=== PATIENT | female | born 1945 | race Caucasian/White ===

== ENCOUNTER 2017-03-05 15:16 | Observation (INO) | payer OTHER ==
[2017-03-05] MEDS ORDERED: NS 1,000 ML IV ONE (15:34)
--- NOTE | 2017-03-05 15:41 | EDPHY ---
H & P Stated Complaint: vertigo started tuesday, then ate bad meatloaf +n/v x 2 days Source: Patient Exam Limitations: No limitations - Personal History Current Tetanus/Diphtheria Vaccine: Unsure Current Tetanus Diphtheria and Acellular Pertussis (TDAP): Unsure - Medical/Surgical History Hx Asthma: Yes Hx Chronic Respiratory Disease: No Hx Diabetes: No Hx Cardiac Disease: No Hx Renal Disease: No Hx Cirrhosis: No Hx Alcoholism: No Hx HIV/AIDS: No Hx Splenectomy or Spleen Trauma: No Other PMH: Glaucoma, Barretts, Asthma, food allergies neck fusion -chronic neck pain;. vertigo - Social History Smoking Status: Never smoked HPI/ROS: CHIEF COMPLAINT: Nausea vomiting HISTORY OF PRESENT ILLNESS: Patient complains of 2 days history of nausea vomiting. This started late night while she was sleeping. Been constant duration. Moderate to severe. Difficulty keeping any solids down. Occasionally keep some liquids down. If she does not vomit immediately after eating it is within our doing so. 5-6 episodes per day. No bloody emesis. No diarrhea. Some constipation. Epigastric abdominal pain with this. No fever or chills. No neck pain or stiffness. Some headache with this. No urinary complaints. She does associated with some vertiginous complaints. She has had some spinning sensation that is worsened when she stands up and changes position over the past few days. She has had this in the past without definitive diagnosis. No other associated complaints or modifying factors. Medical history significant for history of Ballard's esophagitis REVIEW OF SYSTEMS: Ten systems reviewed and are negative unless otherwise noted in the HPI EXAMINATION: General Appearance: Alert, no distress Head: normocephalic, atraumatic Eyes: Pupils equal and round, no conjunctival pallor or injection ENT, Mouth: Mucous membranes moist. Uvula midline Neck: Normal inspection, supple, non-tender. Trachea midline Respiratory: Lungs are clear to auscultation. No wheezing, rhonchi or crackles Cardiovascular: Regular rate and rhythm. No murmur. Pulses intact distally. Gastrointestinal: Abdomen is soft. Mild epigastric tenderness.. No tympany. No rigidity. No guarding. No distention. Non-acute abdomen. Neurological: A&O, nonfocal, GCS 15. Skin: Warm and dry, no rash Extremities: Nontender, no pedal edema Psychiatric: Mood and affect normal DIFFERENTIAL DIAGNOSES: Including but not limited to gastritis, enteritis, cholecystitis, cholelithiasis , pancreatitis, viral illness, dehydration. MDM: 3:40 p.m. Nausea and vomiting over the past 2 days. Vital signs are stable. Examination is not concerning regarding the abdomen. She does have mild epigastric tenderness. This is a nonacute abdomen. Laboratory studies have been ordered, IV fluid resuscitation, antiemetics. She is in no acute distress and not actively vomiting at this time. 4:20 p.m. Notified by nursing staff that the patient is complaining of chest pain. EKG was immediately obtained and is normal sinus rhythm without ischemia. She then proceeded to vomit. While doing so she had a short episode of bradycardia, followed by rebound tachycardia. Suspect this was a vagal as this spontaneously resolved she calmed down and her vomiting stopped. 5:20 p.m. Patient is feeling minimally better. She is no longer vomiting but still nauseated. Given the onset of her chest pain and the duration of her symptoms I will admit the patient for observation. Her troponin is negative. 5:30 p.m. I have discussed the case with Dr. Alexandre. He will admit the patient to EACU observation status. She is admitted in stable condition. ED Precautions: Worsening pain. Fever. Bloody stools. Bloody emesis. Constipation or diarrhea. SUPERVISION: Shared visit with Dr. Davis ([facility]) Constitutional: Initial Vital Signs Temperature (C) 97.7 F 03/05/17 15:19 Heart Rate 82 03/05/17 15:19 Respiratory Rate 16 03/05/17 15:19 O2 Sat (%) 95 03/05/17 15:19 O2 Delivery Mode Room Air O2 (L/minute) 2 Allergies/Adverse Reactions: asparagus Allergy (Intermediate, Verified 12/20/15 05:45) Vomiting ciprofloxacin [From Cipro] Allergy (Verified 03/05/17 15:19) sulfacetamide [From Sulfacet-R] Allergy (Verified 03/05/17 15:19) sulfur [From Sulfacet-R] Allergy (Verified 03/05/17 15:19) Home Medications: Medication Instructions Recorded Bimatoprost 0.01% [Lumigan 0.01% 1 drops EACHEYE HS 12/20/15 (*)] Cetirizine [ZyrTEC 10 mg (*)] 10 mg PO HS 12/20/15 Escitalopram Oxalate [Lexapro] 5 mg PO DAILY 12/20/15 Mometasone/Formoterol [Dulera 100 2 puffs IH BID 12/20/15 Mcg/5 Mcg Inhaler] Montelukast Sodium [Singulair 10 10 mg PO DAILY@1800 12/20/15 mg (*)] Omeprazole [Prilosec 20 mg] 20 mg PO BID 03/05/17 Rosuvastatin Calcium [Crestor] 10 mg PO HS 03/05/17 Medical Decision Making - Diagnostics EKG Interpretation: EKG interpreted by me shows normal sinus rhythm with normal interval. There is left axis deviation. QRS is otherwise normal no significant ST elevation or depression. Rate is 68 (Hussein Davis) ED Course/Re-evaluation: I also saw the patient at 4:30 p.m.. I reviewed the history of vomiting and diffuse abdominal pain. She had received GI cocktail and some Zofran and then has thrown up again. She is also complaining of some pressure-type left chest pain under her left breast. Monitor shows occasional PVCs. A rhythm strip shows the patient seems to vagal down and lose her QRS complexes though continues to have P waves during and immediately following episodes of vomiting. Abdominal exam shows diffuse tenderness but no focal areas of tenderness. No masses or organomegaly (Hussein Davis) - Data Points Laboratory Results: Laboratory Results 03/05/17 15:48 03/05/17 15:48 03/05/17 03/05/17 03/05/17 15:48 15:48 15:48 WBC 4.65 10^3/uL 10^3/uL (3.80-9.50) RBC 4.82 10^6/uL 10^6/uL (4.18-5.33) Hgb 15.0 g/dL g/dL (12.6-16.3) Hct 44.2 % % (38.0-47.0) MCV 91.7 fL fL (81.5-99.8) MCH 31.1 pg pg (27.9-34.1) MCHC 33.9 g/dL g/dL (32.4-36.7) RDW 13.1 % % (11.5-15.2) Plt Count 204 10^3/uL 10^3/uL (150-400) MPV 10.1 fL fL (8.7-11.7) Neut % (Auto) 45.2 % % (39.3-74.2) Lymph % (Auto) 33.8 % % (15.0-45.0) Angelina % (Auto) 14.0 % H % (4.5-13.0) Eos % (Auto) 6.2 % % (0.6-7.6) Baso % (Auto) 0.6 % % (0.3-1.7) Nucleat RBC Rel Count 0.0 % % (0.0-0.2) Absolute Neuts (auto) 2.10 10^3/uL 10^3/uL (1.70-6.50) Absolute Lymphs (auto) 1.57 10^3/uL 10^3/uL (1.00-3.00) Absolute Monos (auto) 0.65 10^3/uL 10^3/uL (0.30-0.80) Absolute Eos (auto) 0.29 10^3/uL 10^3/uL (0.03-0.40) Absolute Basos (auto) 0.03 10^3/uL 10^3/uL (0.02-0.10) Absolute Nucleated RBC 0.00 10^3/uL 10^3/uL (0-0.01) Immature Gran % 0.2 % % (0.0-1.1) Immature Gran # 0.01 10^3/uL 10^3/uL (0.00-0.10) PT 12.6 SEC SEC (12.0-15.0) INR 0.95 (0.83-1.16) APTT 26.3 SEC SEC (23.0-38.0) Sodium 139 mEq/L mEq/L (134-144) Potassium 3.8 mEq/L mEq/L (3.5-5.2) Chloride 103 mEq/L mEq/L (97-110) Carbon Dioxide 26 mEq/l mEq/l (22-31) Anion Gap 10 mEq/L mEq/L (8-16) BUN 12 mg/dL mg/dL (7-23) Creatinine 0.7 mg/dL mg/dL (0.6-1.0) Estimated GFR > 60 Glucose 126 mg/dL H mg/dL (70-100) Calcium 9.4 mg/dL mg/dL (8.5-10.4) Total Bilirubin 0.4 mg/dL mg/dL (0.1-1.4) Conjugated Bilirubin 0.3 mg/dL mg/dL (0.0-0.5) Unconjugated Bilirubin 0.1 mg/dL mg/dL (0.0-1.1) AST 57 IU/L H IU/L (14-46) ALT 79 IU/L H IU/L (9-52) Alkaline Phosphatase 128 IU/L H IU/L (38-126) Troponin I Pending Total Protein 7.4 g/dL g/dL (6.3-8.2) Albumin 4.2 g/dL g/dL (3.5-5.0) Lipase 76.0 IU/L IU/L (23-300) Medications Given: Discontinued Medications Al Hydroxide/Mg Hydroxide (Maalox Susp) 30 ml PO ONCE ONE Stop: 03/05/17 16:21 Last Admin: 03/05/17 16:27 Dose: 30 ml Hyoscyamine Sulfate (Levsin, Hyomax-Sl) 0.25 mg PO ONCE ONE Stop: 03/05/17 16:21 Last Admin: 03/05/17 16:27 Dose: 0.25 mg Sodium Chloride (Ns) 1,000 mls @ 0 mls/hr IV ONCE ONE PRN Reason: Wide Open Stop: 03/05/17 15:35 Last Admin: 03/05/17 15:58 Dose: 1,000 mls Pantoprazole Sodium 80 mg/ (Sodium Chloride) 100 mls @ 200 mls/hr IV ONCE ONE Stop: 03/05/17 16:11 Last Admin: 03/05/17 16:14 Dose: 100 mls Lidocaine (Lidocaine 2% Viscous) 15 ml PO ONCE ONE Stop: 03/05/17 16:21 Last Admin: 03/05/17 16:27 Dose: 15 ml Meclizine HCl (Meclizine Hcl) 12.5 mg PO EDNOW ONE Stop: 03/05/17 15:43 Last Admin: 03/05/17 15:58 Dose: 12.5 mg Ondansetron HCl (Zofran) 4 mg IVP EDNOW ONE Stop: 03/05/17 15:44 Last Admin: 03/05/17 15:58 Dose: 4 mg Ondansetron HCl (Zofran) 4 mg IVP EDNOW ONE Stop: 03/05/17 16:30 Last Admin: 03/05/17 16:35 Dose: 4 mg Departure - Departure Referrals: Renee Dodson MD [Primary Care Provider] - As per Instructions
[2017-03-05] MEDS ORDERED: MECLIZINE HCL 25 MG TAB PO ONE (15:42)
[2017-03-05] MEDS ORDERED: PANTOPRAZOLE SODIUM 80 MG in NS 100 ML IV ONE (15:42)
[2017-03-05] MEDS ORDERED: ONDANSETRON 4 MG/2 ML VIAL IVP ONE ×2 (15:43→16:29)
[2017-03-05 16:01] LABS: % IMMATURE GRANULYOCYTES 0.2 % (0.0-1.1); ABSOLUTE IMMATURE GRANULOCYTES 0.01 10^3/uL (0.00-0.10); ADD DIFF? NO; ADD MORPH? NO; ADD SCAN? NO; ATYPICAL LYMPHOCYTE FLAG 0 (0-99); FRAGMENT RBC FLAG 0 (0-99); HEMATOCRIT 44.2 % (38.0-47.0); LEFT SHIFT FLG 0 (0-99); LIPEMIA HEMOLYSIS FLAG 90 (0-99); MEAN CELL HEMOGLOBIN 31.1 pg (27.9-34.1); MEAN CELL HEMOGLOBIN CONCENTR. 33.9 g/dL (32.4-36.7); MEAN CELL VOLUME 91.7 fL (81.5-99.8); MEAN PLATELET VOLUME 10.1 fL (8.7-11.7); PLATELET CLUMPS FLAG 0 (0-99); PLATELET COUNT 204 10^3/uL (150-400); RED BLOOD CELL COUNT 4.82 10^6/uL (4.18-5.33); RED CELL DISTRIBUTION WIDTH 13.1 % (11.5-15.2)
--- NOTE | 2017-03-05 16:10 | CPEKG ---
Heart Rate: 68 RR Interval: 882 P-R Interval: 192 QRSD Interval: 96 QT Interval: 392 QTC Interval: 417 P Woodland: 18 QRS Woodland: 4 T Wave Woodland: 27 EKG Severity - NORMAL ECG - EKG Impression: SINUS RHYTHM Electronically Signed By: Hussein Davis 05-Mar-2017 16:45:08
[2017-03-05 16:14] LABS: INR 0.95 (0.83-1.16); PROTIME(PATIENT) 12.6 SEC (12.0-15.0)
[2017-03-05 16:15] LABS: APTT 26.3 SEC (23.0-38.0)
[2017-03-05 16:17] LABS: ALANINE AMINOTRANSFERASE 79 IU/L (9-52); ALBUMIN 4.2 g/dL (3.5-5.0); ALKALINE PHOSPHATASE 128 IU/L (38-126); ANION GAP 10 mEq/L (8-16); ASPARTATE AMINOTRANSFERASE 57 IU/L (14-46); BILIRUBIN,TOTAL 0.4 mg/dL (0.1-1.4); CALCIUM 9.4 mg/dL (8.5-10.4); CARBON DIOXIDE 26 mEq/l (22-31); CHLORIDE 103 mEq/L (97-110); CREATININE 0.7 mg/dL (0.6-1.0); GLOMERULAR FILTRATION RATE > 60; GLUCOSE 126 mg/dL (70-100); POTASSIUM 3.8 mEq/L (3.5-5.2); SODIUM 139 mEq/L (134-144); TOTAL PROTEIN 7.4 g/dL (6.3-8.2)
[2017-03-05] MEDS ORDERED: LIDOCAINE 2% VISCOUS 15 ML UDCUP PO ONE (16:20)
[2017-03-05] MEDS ORDERED: HYOSCYAMINE SULFATE 0.125 MG TAB PO ONE (16:20)
[2017-03-05] MEDS ORDERED: MAG HYDROX/AL HYDROX/SIMETH 30 ML UDCUP PO ONE (16:20)
[2017-03-05 16:51] LABS: BILIRUBIN-CONJUGATED 0.3 mg/dL (0.0-0.5); BILIRUBIN-UNCONJUGATED 0.1 mg/dL (0.0-1.1)
[2017-03-05 17:20] LABS: TROPONIN I < 0.012 ng/mL (0-0.034)
[2017-03-05] MEDS ORDERED: ONDANSETRON 4 MG/2 ML VIAL IVP PRN (17:43)
[2017-03-05] MEDS ORDERED: ONDANSETRON DISINTEGRATING 4 MG TAB PO PRN (17:43)
[2017-03-05] MEDS ORDERED: ACETAMINOPHEN 325 MG TAB PO PRN (17:43)
--- NOTE | 2017-03-05 17:45 | PDGENHP ---
History and Physical History and Physical: HISTORY AND PHYSICAL CC:Nausea vomiting HISTORY: This patient had onset of the dizziness nausea sensation 2 days ago followed shortly thereafter by onset of profuse vomiting and she has been vomiting now for nearly 48 hours. There is mild crampy abdominal pain in the epigastrium that occasionally comes with this. There is also occasional mild diffuse abdominal cramping. There is no signs of bleeding or blood products. There is no fever or fever symptoms. There is no diarrhea. She has not had a bowel movement for couple days but she has had nothing to eat. No rashes have come up , no acute joint pains. She did have some oral ulcer symptoms about a week prior to this that have resolved. There is no headache or myalgias. The patient tells me that she has been having episodes bring much identical to this since she was a young child. They are not terribly common but she has had previous hospitalizations in a wide range of medical evaluations including gastroenterology evaluations with endoscopies and allergy evaluations. She has never been given a specific diagnosis for this. in terms of triggers notably she has found that by valve mild discs such as muscles and clams will always triggered this type of episode and she avoids them. She has not found other food specifically that cause this to happen. Notably there is a history of migraine headaches as a child and teenager but no recent migraine headache per se. She has no history of abdominal surgeries. She did have an ulcer associated with H pylori around 20 years ago and had her H pylori treated. She has subsequently tested negative for H pylori and subsequently had endoscopies without evidence of ulceration. She does have a history of Ballard's esophagus. She also mentions that she was told based on her last at an endoscopy that she had " a pre cancerous stomach" but she was unable to elaborate on details of what that really means. Dr. Castanon is her transmission supervisor who did the study apparently ROS: A comprehensive 10 system review revealed no other significant findings PAST MEDICAL HISTORY: -chronic recurrent episodes of uncontrolled vomiting sometimes requiring hospital admission -Ballard's esophagus -Question of abnormal gastric mucosal findings on endoscopy -asthma -childhood history of migraines, no recent migraine headaches - spine surgery FAMILY MEDICAL HISTORY: No else in her family with similar gastric or other digestive issues SOCIAL HISTORY: , lives with who is here at the bedside now. She works full- time. She uses no tobacco marijuana or alcohol. She exercises regular MEDICATIONS: The patients list has been reconciled by our clinical pharmacist in the EMR. I have reviewed the list and ordered appropriate medicines. PHYSICAL EXAMINATION: Vital Signs: Normal without fever Examination: General: alert, oriented, good mentation, relaxed Skin: warm, dry, good color, no rash HEENT: normal Neck: no mass or jvd Resps: relaxed Lungs: clear breath sounds Heart: regular, no murmur Abdomen: soft, nondistended, a couple areas of mild tenderness without guarding or rebound, +BS, no mass Upper Extremities: normal Lower Extremities: no edema, warm No Bleeding or bruising Neurologic: normal speech/language, normal azure architect, no focal weakness IV site: looks normal LABORATORY DATA: CBC is normal Chemistries show minimal elevations of hepatic transaminases with normal bilirubin ( Old records show occasional similar mild elevations of transaminases but they are usually normal). In additional records show that she has had negative testing for hepatitis-B and C serology Lipase is normal RADIOLOGY STUDIES: -two-view chest x-ray is done in the ER today, my interpretation of the images: Normal chest x-ray. - I also reviewed the findings from abdominal ultrasound in 2014 which showed absence of gallstones but presence of 2 small septated cystic lesions in the liver. These had a broad differential diagnosis and malignancy was felt unlikely but still a potential consideration. ASSESSMENT: 1- INTRACTABLE VOMITING WITHOUT FEVER 2- CHRONIC CYCLIC VOMITING SYNDROME IS HIGHLY SUSPECTED; decades long history of similar episodes without diagnostic findings on previous evaluations 3- MILD ELEVATION OF HEPATIC TRANSAMINASES OF UNCERTAIN CAUSE OR SIGNIFICANCE, UNCERTAIN RELATION TO HER CURRENT SYMPTOMS 4- REMOTE HISTORY OF H PYLORI POSITIVE ULCER, BOTH TREATED AND SUBSEQUENTLY TESTED NEGATIVE FOR BOTH ULCERS AND H PYLORI Given the lifelong history of this repair current syndrome, without evidence of fever or infection and without significant findings on multiple prior evaluations by multiple physicians of different specialties, I do not think it is likely that further diagnostic evaluations will be of much help at this time related to her presenting symptoms. I do think it would be worthwhile looking at this as probable cyclic vomiting syndrome which could potentially lead to some other preventive ideas over time. Despite her presentation history she has never been told that she might have cyclic vomiting syndrome and is unaware of that syndrome's existence. However, with her elevated liver transaminases at this time, and the story of some type of abnormality seen on endoscopy leading to her being told she might have a "pre cancerous stomach", and the above-mentioned abdominal ultrasound findings I would like to review her endoscopy findings more closely with the gastroenterology team and discuss with them whether further assessment of the gastric findings or liver findings is indicated at this time. PLANS: -Symptomatic treatment for probable cyclic vomiting syndrome -Reconsideration of her chronic syndrome as probable cyclic vomiting syndrome, in that this may lead to finding better preventive for management measures in the future; I refer her to her primary care and GI doctors for ongoing assessment and I have discussed this in detail with the patient and her . -GI evaluation to review the presence of elevated hepatic transaminases, prior history of septated cystic lesions found in liver, prior history of some type of abnormal gastric mucosal findings on endoscopy I have reviewed the patient's case in detail with CLAUDE Corrales I have reviewed the patient's past medical records as part of this assessment, including previous hospital admission records and inpatient and outpatient laboratory and radiology studies
--- NOTE | 2017-03-05 19:03 | CPEKG ---
Heart Rate: 67 RR Interval: 896 P-R Interval: 192 QRSD Interval: 92 QT Interval: 400 QTC Interval: 423 P Fowler: 42 QRS Fowler: -1 T Wave Fowler: 22 EKG Severity - NORMAL ECG - EKG Impression: SINUS RHYTHM Electronically Signed By: Jamie Logan 06-Mar-2017 07:36:29
[2017-03-05] MEDS: D5W 1/2 NS 1,000 ML IV SCH (19:17)
[2017-03-05] MEDS: Mometasone/Formoterol [Dulera 100 Mcg/5 Mcg Inhaler] 2 PUFFS IH SCH (20:49)
[2017-03-05] MEDS ORDERED: NON-FORMULARY NEW DRUG (Omeprazole [Prilosec 20 Mg] 20 MG) PO SCH (21:00)
[2017-03-05] MEDS ORDERED: CETIRIZINE 10 MG TAB PO SCH (21:00)
[2017-03-05] MEDS ORDERED: MONTELUKAST SODIUM 10 MG TAB PO SCH (21:00)
[2017-03-05] MEDS ORDERED: ROSUVASTATIN CALCIUM 10 MG TAB PO SCH (21:00)
[2017-03-05] MEDS ORDERED: BIMATOPROST 0.01% 2.5 ML OPHT.BTL EACHEYE SCH (21:00)
[2017-03-05] MEDS ORDERED: ESCITALOPRAM OXALATE 5 MG PO SCH (21:00)
[2017-03-05] MEDS ORDERED: CALCIUM CARBONATE 500 MG CHEWABLE TAB PO PRN (22:34)
[2017-03-05 22:36] LABS: COLOR YELLOW; LEUKOCYTE ESTERASE,URINE 1+ (NEGATIVE); NITRITE,URINE NEGATIVE (NEGATIVE)
[2017-03-05] MEDS: FAMOTIDINE 20 MG TAB PO SCH (22:43)
[2017-03-06] MEDS: D5W 1/2 NS 1,000 ML IV SCH (05:50)
[2017-03-06 05:54] LABS: ALANINE AMINOTRANSFERASE 71 IU/L (9-52); ALBUMIN 3.4 g/dL (3.5-5.0); ALKALINE PHOSPHATASE 95 IU/L (38-126); ANION GAP 8 mEq/L (8-16); ASPARTATE AMINOTRANSFERASE 51 IU/L (14-46); BILIRUBIN,TOTAL 0.5 mg/dL (0.1-1.4); BILIRUBIN-CONJUGATED 0.4 mg/dL (0.0-0.5); BILIRUBIN-UNCONJUGATED 0.1 mg/dL (0.0-1.1); CALCIUM 8.6 mg/dL (8.5-10.4); CARBON DIOXIDE 23 mEq/l (22-31); CHLORIDE 109 mEq/L (97-110); CREATININE 0.7 mg/dL (0.6-1.0); GLOMERULAR FILTRATION RATE > 60; GLUCOSE 86 mg/dL (70-100); POTASSIUM 4.4 mEq/L (3.5-5.2); SODIUM 140 mEq/L (134-144); TOTAL PROTEIN 6.3 g/dL (6.3-8.2)
[2017-03-06 06:05] LABS: TROPONIN I < 0.012 ng/mL (0-0.034)
[2017-03-06 06:05] LABS: % IMMATURE GRANULYOCYTES 0.2 % (0.0-1.1); ABSOLUTE IMMATURE GRANULOCYTES 0.01 10^3/uL (0.00-0.10); ADD DIFF? NO; ADD MORPH? NO; ADD SCAN? NO; ATYPICAL LYMPHOCYTE FLAG 20 (0-99); FRAGMENT RBC FLAG 0 (0-99); HEMATOCRIT 39.4 % (38.0-47.0); HEMOGLOBIN 13.2 g/dL (12.6-16.3); LEFT SHIFT FLG 0 (0-99); LIPEMIA HEMOLYSIS FLAG 80 (0-99); MEAN CELL HEMOGLOBIN 30.9 pg (27.9-34.1); MEAN CELL HEMOGLOBIN CONCENTR. 33.5 g/dL (32.4-36.7); MEAN CELL VOLUME 92.3 fL (81.5-99.8); MEAN PLATELET VOLUME 10.1 fL (8.7-11.7); PLATELET CLUMPS FLAG 0 (0-99); PLATELET COUNT 179 10^3/uL (150-400); RED BLOOD CELL COUNT 4.27 10^6/uL (4.18-5.33); RED CELL DISTRIBUTION WIDTH 13.2 % (11.5-15.2)
[2017-03-06 08:37] VITALS: BP 113/55; PULSE 66; RESP 18; TEMP 97.7; O2SAT 90
[2017-03-06] MEDS ORDERED: PANTOPRAZOLE SODIUM 40 MG TAB PO SCH (09:00)
[2017-03-06] MEDS: Mometasone/Formoterol [Dulera 100 Mcg/5 Mcg Inhaler] 2 PUFFS IH SCH (09:32)
[2017-03-06] MEDS: FAMOTIDINE 20 MG TAB PO SCH (09:35)
--- NOTE | 2017-03-06 14:55 | GDS ---
[f rep st] DISCHARGE SUMMARY DISCHARGE DIAGNOSES: 1. Nausea, vomiting, suspicious for cyclic vomiting syndrome. 2. History of Ballard esophagus. 3. History of asthma. HOSPITAL COURSE AND STAY BY PROBLEM: Intractable nausea and vomiting: The patient was admitted to the hospital where she was treated with IV fluids and antiemetics. On hospital day #1, she was tole rating a full liquid diet and was no longer throwing up. She denied any abdominal pain. PHYSICAL EXAM: VITAL SIGNS: On day of discharge, blood pressure 113/55, pulse 66, respiratory rate 18, O2 saturation 90% on room air. Temperature afebrile. ABDOMEN: Soft, nontender, nondistended. No guarding or rebound tenderness. Normoactive bowel sounds. PERTINENT LABS AND STUDIES: None. DISCHARGE MEDICATIONS: Please refer to discharge medication reconciliation in [facility] for details. DISCHARGE INSTRUCTIONS: The patient will be discharged from the hospital. She should follow up wit h her with her sql ssrs developer and consider outpatient treatment on either amitriptyline or nortr iptyline. /[id number]/MODL
== END 2017-03-06 10:44 | disposition home or self-care (01) ==
LOC: F1N 18:39
PROVIDERS: ADMIT Internal Medicine; ATTEND Family Medicine
DX: R11.2 Nausea with vomiting, unspecified (principal)
CPT/HCPCS: 93005; G0378; J2405; 96374

== ENCOUNTER → 2017-07-30 | Outpatient (CLI) | payer OTHER ==
[~2017-07-30] MED LIST: GADOBUTROL 10 ML VIAL IVP ONE
== END ==
LOC: FIMAGING 08:48
PROVIDERS: ATTEND Family Medicine
DX: G50.0 Trigeminal neuralgia (principal); R42 Dizziness and giddiness; H93.12 Tinnitus, left ear; D33.0 Benign neoplasm of brain, supratentorial
CPT/HCPCS: 70553; A9585

== ENCOUNTER → 2017-11-16 | Outpatient (CLI) | payer OTHER ==
[~2017-11-16] MED LIST changes: -GADOBUTROL 10 ML VIAL IVP ONE; +IOPAMIDOL (ISOVUE-300) 100 ML BTL ONE
== END ==
LOC: FIMAGING 15:16
PROVIDERS: ATTEND Family Medicine
DX: K76.89 Other specified diseases of liver (principal)
CPT/HCPCS: 74177; Q9967

== ENCOUNTER 2019-05-03 08:54 | Emergency (ER) | payer OTHER | END 2019-05-03 13:04 | disposition home or self-care (01) ==